=== PATIENT | female | born 1960 | race Two or more races ===

== ENCOUNTER 2025-03-26 12:15 | Inpatient (IN) | payer OTHER ==
[~2025-03-26] VITALS: Ht 152.4 cm; Wt 81.6 kg
[2025-03-26] MEDS ORDERED: SIMVASTATIN5 MG (13:51)
[2025-03-26] MEDS ORDERED: ONE DAILY MUL400 MCG PO (13:51)
[2025-03-26] MEDS ORDERED: LOSARTAN-HCTZ1 EAC2 PO (13:51)
[2025-03-26] MEDS ORDERED: ABATINEX680 MG (13:52)
[2025-04-02] MEDS ORDERED: LIDOCAINE HCL 1%/EPINEPHRINE 20ML VIAL IJ ONE (07:03)
[2025-04-02] MEDS ORDERED: BUPIVACAINE HCL/Mpf 0.5% 10ML VIAL ONE (07:03)
[2025-04-02] MEDS ORDERED: METRONIDAZOLE/SODIUM CHLORIDE 500 MG/100 ML PIGGYBACK IV ONE ×2 (07:04→16:45)
[2025-04-02] MEDS ORDERED: CEFTRIAXONE SODIUM 2,000 MG VIAL ONE (07:04)
[2025-04-02] MEDS ORDERED: SUGAMMADEX SODIUM 200 MG/2 ML VIAL IV ONE (09:01)
[2025-04-02] MEDS ORDERED: MORPHINE SULFATE 4 MG/ML CARTRIDGE IV PRN (09:45)
[2025-04-02] MEDS ORDERED: ONDANSETRON HCL 2 MG/ML VIAL IV PRN (09:45)
[2025-04-02] MEDS ORDERED: DEXTROSE 50 % IN WATER 0.5 G/ML VIAL IV PRN (09:45)
[2025-04-02] MEDS ORDERED: 0.9 % SODIUM CHLORIDE 1,000 ML IV SCH (09:45)
[2025-04-02] MEDS ORDERED: OxyCODONE HCL 5 MG TABLET (ROXICODONE) PO PRN (09:45)
[2025-04-02] MEDS ORDERED: MORPHINE SULFATE 4 MG/ML VIAL IV ONE ×2 (10:40→11:30)
[2025-04-02] MEDS ORDERED: ENALAPRILAT DIHYDRATE 1.25 MG/ML VIAL IV PRN (10:45)
[2025-04-02] MEDS ORDERED: ONDANSETRON HCL 2 MG/ML VIAL ONE (11:47)
[2025-04-02 12:27] LABS: BASO % 0.1 % (0.1-1.2); EOS # 0.01 (0.04-0.54); EOS % 0.1 % (0.7-7.0); LYMPH # 1.08 (1.18-3.74); LYMPH % 7.2 % (19.3-53.1); MEAN PLATELET VOLUME 11.00 fl (9.4-12.4); MONO # 0.52 (0.24-0.82); MONO % 3.5 % (4.7-12.5); NEUT # 13.37 (1.56-6.13); NEUT % 88.8 % (34.0-71.1); RED CELL DISTRIBUTION WIDTH 13.2 % (11.6-14.4)
[2025-04-02] MEDS ORDERED: HYOSCYAMINE SULFATE 0.125 MG TAB.SUBL SL SCH (13:00)
[2025-04-02] MEDS ORDERED: ACETAMINOPHEN 500 MG GEL..CAP PO ONE (13:29)
[2025-04-02 13:35] LABS: BUN CREA RATIO 17.0 (7.0-25.0); CREATININE SERUM 0.75 mg/dL (0.55-1.02); GFR 78.3; GLUCOSE FASTING 119.0 mg/dL (65-100); OSMOLALITY SERUM 283.0 MOSM/KG (275-295)
[2025-04-02] MEDS ORDERED: ACETAMINOPHEN 500 MG GEL..CAP PO SCH (14:00)
[2025-04-02] MEDS ORDERED: GABAPENTIN 300 MG CAPSULE PO ONE (16:44)
[2025-04-02] MEDS ORDERED: HYOSCYAMINE SULFATE 0.125 MG TAB.SUBL ONE (16:44)
[2025-04-02] MEDS ORDERED: ENALAPRILAT DIHYDRATE 1.25 MG/ML VIAL IV ONE ×2 (16:48→17:53)
[2025-04-02] MEDS ORDERED: GABAPENTIN 300 MG CAPSULE PO SCH (17:00)
[2025-04-02] MEDS ORDERED: METRONIDAZOLE/SODIUM CHLORIDE 500 MG/100 ML PIGGYBACK IV SCH (17:00)
[2025-04-02] MEDS ORDERED: LABETALOL HCL 100 MG/20 ML ML ONE (17:54)
[2025-04-02] MEDS ORDERED: LABETALOL HCL 100 MG/20 ML ML IV STA (17:56)
[2025-04-02] MEDS ORDERED: ENALAPRILAT DIHYDRATE 1.25 MG/ML VIAL IV STA (17:57)
[2025-04-02] MEDS ORDERED: CELECOXIB 200 MG CAPSULE PO SCH (21:00)
[2025-04-02] MEDS ORDERED: FAMOTIDINE/PF 20 MG/2 ML VIAL IV PUSH SCH (21:00)
[2025-04-02 22:06] VITALS: BP 163/90; O2SAT 95
[2025-04-03 02:05] VITALS: BP 147/79; O2SAT 95
[2025-04-03 07:27] LABS: BASO % 0.4 % (0.1-1.2); EOS # 0.08 (0.04-0.54); EOS % 0.9 % (0.7-7.0); LYMPH # 1.94 (1.18-3.74); LYMPH % 22.8 % (19.3-53.1); MEAN PLATELET VOLUME 11.30 fl (9.4-12.4); MONO # 0.51 (0.24-0.82); MONO % 6.0 % (4.7-12.5); NEUT # 5.92 (1.56-6.13); NEUT % 69.5 % (34.0-71.1); RED CELL DISTRIBUTION WIDTH 13.1 % (11.6-14.4)
[2025-04-03 07:42] LABS: BUN CREA RATIO 13.0 (7.0-25.0); CREATININE SERUM 0.53 mg/dL (0.55-1.02); GFR 116.89; GLUCOSE FASTING 88.0 mg/dL (65-100); OSMOLALITY SERUM 282.0 MOSM/KG (275-295)
[2025-04-03 08:00] VITALS: BP 122/72; O2SAT 95
[2025-04-03] MEDS ORDERED: LOSARTAN/HYDROCHLOROTHIAZIDE 1 TAB TABLET PO SCH (09:00)
[2025-04-03] MEDS ORDERED: SODIUM CHLORIDE 0.45 % 1,000 ML IV SCH (10:00)
[2025-04-03] MEDS ORDERED: POTASSIUM CHLORIDE 20MEQ/100ML H2O PB IV NR (11:30)
[2025-04-03] MEDS ORDERED: SIMVASTATIN 20 MG TABLET PO SCH (17:00)
[2025-04-03] MEDS ORDERED: ENOXAPARIN SODIUM 40 MG/0.4 ML SYRINGE SUBCUTANEO SCH (17:00)
[2025-04-03 17:49] VITALS: BP 125/76; O2SAT 96
[2025-04-04 01:22] VITALS: BP 137/74; O2SAT 97
[2025-04-04 08:00] LABS: BUN CREA RATIO 20.0 (7.0-25.0); CREATININE SERUM 0.46 mg/dL (0.55-1.02); GFR 137.64; GLUCOSE FASTING 86.0 mg/dL (65-100); OSMOLALITY SERUM 279.0 MOSM/KG (275-295)
[2025-04-04 08:46] LABS: BASO % 0.4 % (0.1-1.2); EOS # 0.39 (0.04-0.54); EOS % 5.6 % (0.7-7.0); LYMPH # 1.62 (1.18-3.74); LYMPH % 23.3 % (19.3-53.1); MEAN PLATELET VOLUME 11.20 fl (9.4-12.4); MONO # 0.33 (0.24-0.82); MONO % 4.8 % (4.7-12.5); NEUT # 4.54 (1.56-6.13); NEUT % 65.5 % (34.0-71.1); RED CELL DISTRIBUTION WIDTH 13.3 % (11.6-14.4)
[2025-04-04 09:00] VITALS: BP 133/78; O2SAT 96
[2025-04-04] MEDS ORDERED: ENOXAPARIN SODIUM 40 MG/0.4 ML SYRINGE SUBCUTANEO SCH (09:00)
[2025-04-04 16:13] VITALS: BP 131/79; O2SAT 95
[2025-04-05 01:13] VITALS: BP 135/80; O2SAT 96
[2025-04-05 08:00] VITALS: BP 138/79; O2SAT 98
[2025-04-05] MEDS ORDERED: CELEBREX200MG PO (12:11)
[2025-04-05] MEDS ORDERED: HYOSCYAMINE0.125 M1 SL (12:11)
== END 2025-04-05 15:00 | disposition home or self-care (01) | DRG 331 ==
LOC: O/R 04-02 06:00 → SURG 04-02 12:00 → SURH 04-02 13:40
PROVIDERS: Internal Medicine Geriatric Medicine; ADMIT Surgery; ATTEND Surgery
PROC: 0DBP4ZZ Excision of Rectum, Percutaneous Endoscopic Approach (ICD-10-PCS; 2025-04-02)
PROC: 0DJD8ZZ Inspection of Lower Intestinal Tract, Via Natural or Artificial Opening Endoscopic (ICD-10-PCS; 2025-04-02)
PROC: 0DBW4ZX Excision of Peritoneum, Percutaneous Endoscopic Approach, Diagnostic (ICD-10-PCS; 2025-04-02)
PROC: 0DTN4ZZ Resection of Sigmoid Colon, Percutaneous Endoscopic Approach (ICD-10-PCS; principal; 2025-04-02 12:00)
DX: K57.32 Diverticulitis of large intestine without perforation or abscess without bleeding (principal); K66.0 Peritoneal adhesions (postprocedural) (postinfection); R59.0 Localized enlarged lymph nodes; E78.00 Pure hypercholesterolemia, unspecified; R19.4 Change in bowel habit; R10.32 Left lower quadrant pain; I10 Essential (primary) hypertension